=== PATIENT | female | born 2000 | race Caucasian/White ===

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

== ENCOUNTER 2021-05-03 10:46 | Day surgery (SDC) | payer OTHER ==
[2021-05-03 14:59] LABS: Magnesium, Blood 1.6 mg/dL (1.6-2.4)
[2021-05-03 15:07] LABS: Alanine Aminotransfer (ALT/SGP 14 U/L (12-78); Albumin, Blood 4.2 g/dL (3.4-5.0); Albumin/Globulin Ratio 1.1 (0.8-1.8); Alk Phos 50 U/L (45-116); Anion Gap 8 mmol/L (6-16); Aspartate Aminotrans (AST/SGOT 10 U/L (12-37); Bilirubin, Total 1.2 mg/dL (0.1-1.0); Blood Urea Nitrogen 11 mg/dL (8-21); Bun/Creatinine Ratio 17.9 (12.0-20.0); CO2, Blood 29 mmol/L (21-32); Calcium, Blood 9.6 mg/dL (8.5-10.1); Chloride, Blood 101 mmol/L (98-108); Creatinine, Blood 0.62 mg/dL (0.40-1.00); Globulin, Blood 3.9 g/dL (2.2-4.0); Glomerular Filtration Rate >60 (60-); Glucose, Blood 80 mg/dL (70-99); Potassium, Blood 2.3 mmol/L (3.5-5.5); Sodium, Blood 138 mmol/L (136-145); Total Protein, Blood 8.1 g/dL (6.4-8.2)
[2021-05-03 19:09] LABS: Magnesium, Blood 2.6 mg/dL (1.6-2.4)
[2021-05-03 19:14] LABS: Alanine Aminotransfer (ALT/SGP 14 U/L (12-78); Albumin, Blood 3.9 g/dL (3.4-5.0); Albumin/Globulin Ratio 1.1 (0.8-1.8); Alk Phos 53 U/L (45-116); Anion Gap 4 mmol/L (6-16); Aspartate Aminotrans (AST/SGOT 14 U/L (12-37); Bilirubin, Total 1.2 mg/dL (0.1-1.0); Blood Urea Nitrogen 10 mg/dL (8-21); Bun/Creatinine Ratio 16.6 (12.0-20.0); CO2, Blood 31 mmol/L (21-32); Calcium, Blood 9.2 mg/dL (8.5-10.1); Chloride, Blood 105 mmol/L (98-108); Globulin, Blood 3.4 g/dL (2.2-4.0); Glomerular Filtration Rate >60 (60-); Glucose, Blood 104 mg/dL (70-99); Potassium, Blood 3.1 mmol/L (3.5-5.5); Sodium, Blood 140 mmol/L (136-145); Total Protein, Blood 7.3 g/dL (6.4-8.2)
== END 2021-05-03 18:39 | disposition home or self-care (01) ==
LOC: ATC 10:46
PROVIDERS: Obstetrics & Gynecology
DX: E87.6 Hypokalemia (principal); J45.909 Unspecified asthma, uncomplicated; Z79.899 Other long term (current) drug therapy
CPT/HCPCS: 80053; 83735; 96365; 96366; J3475; J3480; J7050

== ENCOUNTER 2021-05-13 00:53 | Day surgery (SDC) | payer OTHER ==
--- NOTE | 2021-05-13 07:59 | NUR ---
HAD TO STOP INFUSION DUE TO PAIN AT IV SITE. PT UNABLE TO TOLERATE. SPOKE WITH PHARMACY. THEY WILL MAKE UP NEW BAG IN LARGER FLUID SOLUTION.
== END 2021-05-13 12:30 | disposition home or self-care (01) ==
LOC: ATC 00:53
DX: E87.6 Hypokalemia (principal)
CPT/HCPCS: 96365; 96366; 96368; J3475; J3480; J7050

== ENCOUNTER 2021-05-24 05:19 | Day surgery (SDC) | payer OTHER ==
[2021-05-24] MEDS ORDERED: POTCHL20ER PO (09:55)
--- NOTE | 2021-05-24 14:02 | NUR ---
LABS DRAWN POST INFUSION FROM IV PER HOSPITAL PROTOCOL
[2021-05-24 14:31] LABS: Alanine Aminotransfer (ALT/SGP 15 U/L (12-78); Albumin, Blood 3.9 g/dL (3.4-5.0); Albumin/Globulin Ratio 1.1 (0.8-1.8); Alk Phos 55 U/L (45-116); Anion Gap 5 mmol/L (6-16); Aspartate Aminotrans (AST/SGOT 17 U/L (12-37); Bilirubin, Total 0.9 mg/dL (0.1-1.0); Blood Urea Nitrogen 10 mg/dL (8-21); Bun/Creatinine Ratio 18.7 (12.0-20.0); CO2, Blood 28 mmol/L (21-32); Calcium, Blood 8.6 mg/dL (8.5-10.1); Chloride, Blood 107 mmol/L (98-108); Creatinine, Blood 0.53 mg/dL (0.40-1.00); Globulin, Blood 3.5 g/dL (2.2-4.0); Glomerular Filtration Rate >60 (60-); Glucose, Blood 102 mg/dL (70-99); Magnesium, Blood 2.5 mg/dL (1.6-2.4); Potassium, Blood 3.6 mmol/L (3.5-5.5); Sodium, Blood 140 mmol/L (136-145); Total Protein, Blood 7.4 g/dL (6.4-8.2)
== END 2021-05-24 14:02 | disposition home or self-care (01) ==
LOC: ATC 05:19
PROVIDERS: Obstetrics & Gynecology
DX: E87.6 Hypokalemia (principal); J45.20 Mild intermittent asthma, uncomplicated
CPT/HCPCS: 36415; 80053; 83735; 96365; 96366; 96368; J3475; J3480; J7050

== ENCOUNTER 2021-05-25 12:55 | Day surgery (SDC) | payer OTHER ==
[~2021-05-25] VITALS: Ht 167.6 cm; Wt 62.5 kg
[~2021-05-25 12:55] MED LIST changes: +POTCHL20ER PO
--- NOTE | 2021-05-25 14:38 | NUR ---
05/25/21 1438 Meredith Guillory PT PROCEEDURE DELAYED D/T PREVIOUS DELAYED PROCEEDURE. PT INFORMED, NO QUESTIONS OR CONCERNS. PT IN ROOM WITH PERSONAL PHONE, TV ON, CALL LIGHT WITHIN REACH. WARM BLANKET PROVIDED.
--- NOTE | 2021-05-25 16:01 | NUR ---
05/25/21 1601 Sameer Parada 0.15MG EPI ADDED TO 30ML'S 0.5% MARCAINE TO ACHIEVE SOLUTION OF 1:200,000.
--- NOTE | 2021-05-25 16:27 | NUR ---
05/25/21 1627 TYLER DUKES PAIN
--- NOTE | 2021-05-25 17:26 | NUR ---
05/25/211725 TYLER DUKES PT BOYFRIEND ASSISTED PT WITH DRESSING, WAS INVOLVED WITH DISCHARGE INSTRUCTIONS. HE STATES HE IS A CAREGIVER AND IS ABLE TO HELP HER WITH HER MEDICATIONS AND CARE.
== END 2021-05-25 17:22 | disposition home or self-care (01) ==
LOC: ORSCSDS 12:55
PROVIDERS: Obstetrics & Gynecology
PROC: 0UT64ZZ Resection of Left Fallopian Tube, Percutaneous Endoscopic Approach (ICD-10-PCS; principal; 2021-05-25 14:15)
DX: D27.1 Benign neoplasm of left ovary (principal)
CPT/HCPCS: A9270; J0171; J1100; J2250; J2405; J2704; J3010; J7120

== ENCOUNTER 2021-05-25 19:14 | Emergency (ER) | payer OTHER ==
[~2021-05-25] VITALS: Ht 167.6 cm; Wt 62.1 kg
[2021-05-25 20:16] LABS: BASOPHILS ABSOLUTE AUTO 0.02 K/mm3 (0.00-0.23); BASOPHILS PERCENT AUTO 0 % (0-2); EOSINOPHILS PERCENT AUTO 0 % (0-6); Hematocrit 39.7 % (33.0-51.0); Hemoglobin 14.5 g/dL (11.5-16.0); IMMATURE GRAN ABSOLUTE AUTO 0.08 K/mm3 (0.00-0.10); IMMATURE GRAN PERCENT AUTO 1 % (0-1); LYMPHOCYTES ABSOLUTE AUTO 0.75 K/mm3 (0.84-5.20); LYMPHOCYTES PERCENT AUTO 5 % (21-46); MONOCYTES PERCENT AUTO 2 % (4-13); Mean Corpuscular HGB 31.9 pg (26.0-34.0); Mean Corpuscular HGB Conc 36.5 g/dL (31.5-36.5); Mean Corpuscular Volume 87 fL (80-100); Mean Platelet Volume 9.7 fL (9.1-12.4); NEUTROPHILS ABSOLUTE AUTO 15.56 K/mm3 (1.96-9.15); NEUTROPHILS PERCENT AUTO 93 % (41-73); Platelet Count 324 K/mm3 (150-400); RDW Coefficient Variation 11.9 % (11.7-14.2); RDW Standard Deviation 38.4 fL (35.1-46.3); Red Blood Cell Count 4.54 M/mm3 (3.80-5.20); White Blood Cell Count 16.81 K/mm3 (4.00-11.30)
[2021-05-25 20:20] LABS: Source, Urine Clean Catch
[2021-05-25 20:29] LABS: Alanine Aminotransfer (ALT/SGP 21 U/L (12-78); Albumin, Blood 4.2 g/dL (3.4-5.0); Albumin/Globulin Ratio 1.1 (0.8-1.8); Alk Phos 50 U/L (45-116); Anion Gap 7 mmol/L (6-16); Aspartate Aminotrans (AST/SGOT 20 U/L (12-37); Bilirubin, Total 1.5 mg/dL (0.1-1.0); Blood Urea Nitrogen 10 mg/dL (8-21); Bun/Creatinine Ratio 18.9 (12.0-20.0); CO2, Blood 29 mmol/L (21-32); Calcium, Blood 9.4 mg/dL (8.5-10.1); Chloride, Blood 102 mmol/L (98-108); Creatinine, Blood 0.53 mg/dL (0.40-1.00); Globulin, Blood 3.7 g/dL (2.2-4.0); Glomerular Filtration Rate >60 (60-); Glucose, Blood 128 mg/dL (70-99); Sodium, Blood 138 mmol/L (136-145); Total Protein, Blood 7.9 g/dL (6.4-8.2)
[2021-05-25 20:30] LABS: Appearance, Urine Clear (Clear); Bilirubin, Urine Neg (Neg); Blood, Urine 4+ (Neg); Color, Urine Yellow (P-Yellow); Glucose Qualitative, Urine Neg (Neg); Ketones, Urine Neg (Neg); Leukocyte Esterase, Urine Neg (Neg); Nitrite, Urine Neg (Neg); Protein, Urine 1+ (Neg); Urobilinogen, Urine NORM (Normal)
[2021-05-25 20:39] LABS: Amorphous Light (0-Heavy); Bacteria Mod /hpf; Hyaline Casts 0-2 /lpf (0-2); Mucus Light (0-Heavy); Squamous Epithelial Cells Few /hpf (Few)
== END 2021-05-25 22:48 | disposition home or self-care (01) ==
LOC: ER 19:14
PROVIDERS: Physician Assistant
DX: G89.18 Other acute postprocedural pain (principal); J45.909 Unspecified asthma, uncomplicated
CPT/HCPCS: 74176; 80053; 81001; 81025; 83690; 85025; 87077; 87086; 87186; 99284-25; J7030

== ENCOUNTER 2021-12-18 02:14 | Day surgery (SDC) | payer OTHER ==
[2021-12-18] MEDS ORDERED: POTCHL20ER PO (10:03)
[2021-12-18] MEDS ORDERED: MAGNESIUM OXID500 MG PO (10:03)
[2021-12-18] MEDS ORDERED: [UNRECOGNIZED DRUG - OTHER] (10:07)
== END 2021-12-18 14:30 | disposition home or self-care (01) ==
LOC: ATC 02:14
DX: E87.6 Hypokalemia (principal); E83.2 Disorders of zinc metabolism; N28.89 Other specified disorders of kidney and ureter; J45.909 Unspecified asthma, uncomplicated
CPT/HCPCS: J3475; J3480; J7040

== ENCOUNTER 2022-07-13 00:17 | Day surgery (SDC) | payer OTHER ==
[~2022-07-13 00:17] MED LIST changes: +MAGNESIUM OXID500 MG PO; +MELATONIN5 M1 PO; +MULTI-VITAMIN1 EAC2 PO; +NAPROXEN250 MG PO; +[UNRECOGNIZED DRUG - OTHER] PO
[2022-07-13 12:08] LABS: Bun/Creatinine Ratio 21.8 (12.0-20.0); Calcium, Blood 9.2 mg/dL (8.5-10.1); Creatinine, Blood 0.51 mg/dL (0.40-1.00); Potassium, Blood 2.3 mmol/L (3.5-5.5)
[2022-07-13 12:09] LABS: Magnesium, Blood 1.1 mg/dL (1.6-2.4)
== END 2022-07-13 17:05 | disposition home or self-care (01) ==
LOC: ATC 00:17
PROVIDERS: Family Medicine
DX: N25.89 Other disorders resulting from impaired renal tubular function (principal); E87.6 Hypokalemia; E83.42 Hypomagnesemia; J45.909 Unspecified asthma, uncomplicated
CPT/HCPCS: 80048; 83735; 96365; 96366; 96368; J1642; J3475; J3480; J7050

== ENCOUNTER → 2022-07-29 | Outpatient (CLI) | payer OTHER | END | disposition home or self-care (01) | LOC: LAB SHORT 18:28 | DX: E87.6 Hypokalemia (principal) | CPT/HCPCS: 83735 ==

== ENCOUNTER → 2022-08-26 | Outpatient (CLI) | payer OTHER ==
[2022-08-26 19:57] LABS: Calcium, Blood 9.1 mg/dL (8.5-10.1); Creatinine, Blood 0.57 mg/dL (0.40-1.00); Magnesium, Blood 1.6 mg/dL (1.6-2.4); Potassium, Blood 2.5 mmol/L (3.5-5.5); Prolactin 14.5 ng/mL
== END | disposition home or self-care (01) ==
LOC: LAB SHORT 18:48
PROVIDERS: Family Medicine
DX: D35.2 Benign neoplasm of pituitary gland (principal); N25.89 Other disorders resulting from impaired renal tubular function
CPT/HCPCS: 80048; 82533; 83735; 84146; 84443

== ENCOUNTER → 2022-09-06 | Outpatient (CLI) | payer OTHER ==
[2022-09-06 20:06] LABS: Bun/Creatinine Ratio 28.3 (12.0-20.0); Calcium, Blood 9.1 mg/dL (8.5-10.1); Creatinine, Blood 0.5 mg/dL (0.40-1.00); Magnesium, Blood 1.7 mg/dL (1.6-2.4); Potassium, Blood 2.7 mmol/L (3.5-5.5)
== END | disposition home or self-care (01) ==
LOC: LAB 10:20 → LAB SHORT 10:20
PROVIDERS: Family Medicine
DX: N25.89 Other disorders resulting from impaired renal tubular function (principal)
CPT/HCPCS: 80048; 83735

== ENCOUNTER → 2022-10-14 | Outpatient (CLI) | payer OTHER ==
[2022-10-14 20:23] LABS: Magnesium, Blood 1.3 mg/dL (1.6-2.4)
[2022-10-14 20:31] LABS: Bun/Creatinine Ratio 17.3 (12.0-20.0); Calcium, Blood 9.7 mg/dL (8.5-10.1); Creatinine, Blood 0.58 mg/dL (0.40-1.00); Prolactin 13.7 ng/mL; Thyroid Stimulating Hormone 1.61 uIU/mL (0.360-4.800)
== END | disposition home or self-care (01) ==
LOC: LAB SHORT 19:12 → LAB 19:12
PROVIDERS: Family Medicine
DX: D35.2 Benign neoplasm of pituitary gland (principal); N25.89 Other disorders resulting from impaired renal tubular function
CPT/HCPCS: 80048; 83735; 84146; 84443

== ENCOUNTER 2022-10-21 14:32 | Emergency (ER) | payer OTHER ==
[~2022-10-21] VITALS: Ht 167.6 cm; Wt 68.0 kg
== END 2022-10-21 21:35 | disposition home or self-care (01) ==
LOC: ER 14:32
DX: E87.6 Hypokalemia (principal); E83.42 Hypomagnesemia; J45.909 Unspecified asthma, uncomplicated; Z79.899 Other long term (current) drug therapy
CPT/HCPCS: J1642; J3475; J3480; J7050

== ENCOUNTER → 2022-10-27 | Outpatient (CLI) | payer OTHER ==
[2022-10-27 20:04] LABS: Bun/Creatinine Ratio 25.2 (12.0-20.0); Calcium, Blood 9.5 mg/dL (8.5-10.1); Creatinine, Blood 0.6 mg/dL (0.40-1.00); Magnesium, Blood 1.2 mg/dL (1.6-2.4); Potassium, Blood 2.7 mmol/L (3.5-5.5)
== END | disposition home or self-care (01) ==
LOC: LAB SHORT 11:00 → LAB 11:00
PROVIDERS: Family Medicine
DX: N25.89 Other disorders resulting from impaired renal tubular function (principal)
CPT/HCPCS: 80048; 83735

== ENCOUNTER → 2025-07-08 | Outpatient (CLI) | payer OTHER ==
[2025-07-08 21:05] LABS: Microalbumin, Urine Quant. 6.11 mg/L (0.000-20.000); Protein, Urine Quantitative 10.8 mg/dL (0.0-11.9)
== END ==
LOC: EDSTATUS 06-18 15:40 → LAB FUT 06-18 15:40 → LAB 17:13 → LAB SHORT 17:13
PROVIDERS: Internal Medicine Nephrology
DX: N18.2 Chronic kidney disease, stage 2 (mild) (principal); D63.1 Anemia in chronic kidney disease; N25.81 Secondary hyperparathyroidism of renal origin; E55.9 Vitamin D deficiency, unspecified; E78.00 Pure hypercholesterolemia, unspecified; R76.9 Abnormal immunological finding in serum, unspecified; R94.5 Abnormal results of liver function studies; R94.6 Abnormal results of thyroid function studies; G60.9 Hereditary and idiopathic neuropathy, unspecified
CPT/HCPCS: 81050; 82043; 82570; 84156